=== PATIENT | male | born 1945 | race Caucasian/White ===

== ENCOUNTER → 2017-11-05 | Outpatient (CLI) | payer MEDICARE, OTHER ==
[~2017-11-05] MED LIST: ALBU2.5V4 IH; ASCO100083 PO; AZEL205. NS; CATHETER FLUSH 10 ML SYR IV PRN; DILT120C85 PO; FEXO180T84 PO; FISH1CAP15 PO; GABA300C PO; GARL200T PO; GLUC-113 PO; LEVO125T6 PO; MMT17NA NS; MULT-890 PO; OMEP20TA2 PO; REGADENOSON 0.4 MG/5 ML SYR (LEXISCAN) IV ONE; ROSU5TAB PO; TIOT18CA IH; UBID100C17 PO
[2017-11-05 13:02] VITALS: BP 140/84
== END ==
LOC: CARD 09:08
PROVIDERS: ATTEND Nurse Practitioner Family
DX: I25.10 Atherosclerotic heart disease of native coronary artery without angina pectoris (principal); E78.5 Hyperlipidemia, unspecified; R06.09 Other forms of dyspnea; I10 Essential (primary) hypertension; J44.9 Chronic obstructive pulmonary disease, unspecified
CPT/HCPCS: 93306

== ENCOUNTER → 2020-01-26 | Outpatient (CLI) | payer MEDICARE, OTHER ==
[~2020-01-26] VITALS: Ht 180 cm; Wt 108.0 kg
[2020-01-26 08:44] VITALS: BP 128/89
[2020-01-26 08:46] VITALS: BP 150/90
--- NOTE | 2020-01-26 14:16 | STRESS TEST ---
DATE OF SERVICE: 01/26/2020 RESTING AND POST REGADENOSON TECHNETIUM-99M TETROFOSMIN SPECT CT IMAGING ORDERING PHYSICIAN: Delaney Perera APRN PRIMARY PHYSICIAN: Selvin Parker MD CLINICAL DIAGNOSES: Shortness of breath, coronary artery disease. Baseline images were carried out after injection of 10.65 mCi of technetium-99m Tetrofosmin. This was followed by 0.4 mg regadenoson and 32.5 mCi of technetium-99m Tetrofosmin for stress imaging. The electrocardiogram showed sinus rhythm at baseline. It did not change significantly with the regadenoson infusion. The patient tolerated the procedure well. Review of images at rest and following stress indicates a small basal inferior perfusion defect that appears transient. Gated images show normal global left ventricular systolic function with normal regional wall motion. Left ventricular ejection fraction is calculated to be 66%. TID is absent (0.99). CONCLUSIONS: 1. The study is suggestive of a small amount of basal inferior ischemia. 2. Normal regional wall motion. 3. Normal global left ventricular systolic function with a calculated ejection fraction of 66%. Job ID: [id number] DocumentID: [id number] Dictated Date: 01/26/2020 11:43:41 Office Machinery Or Equipment Installer Date: 01/26/2020 14:15:13 Dictated By: CAROL ERVIN MD, MA, FACP, FACC, MTDD
== END ==
LOC: CARD 07:33
PROVIDERS: ATTEND Nurse Practitioner Family
DX: I25.10 Atherosclerotic heart disease of native coronary artery without angina pectoris (principal); I10 Essential (primary) hypertension; E78.5 Hyperlipidemia, unspecified; I65.23 Occlusion and stenosis of bilateral carotid arteries
CPT/HCPCS: 78452; 93017

== ENCOUNTER → 2020-01-29 | Outpatient (CLI) | payer MEDICARE, OTHER ==
[~2020-01-29] MED LIST changes: -CATHETER FLUSH 10 ML SYR IV PRN; -REGADENOSON 0.4 MG/5 ML SYR (LEXISCAN) IV ONE
== END ==
LOC: CARD 09:28
PROVIDERS: ATTEND Nurse Practitioner Family
DX: I25.10 Atherosclerotic heart disease of native coronary artery without angina pectoris (principal); I77.89 Other specified disorders of arteries and arterioles; I10 Essential (primary) hypertension; E78.5 Hyperlipidemia, unspecified; I35.8 Other nonrheumatic aortic valve disorders
CPT/HCPCS: 93306

== ENCOUNTER 2020-03-08 06:39 | Day surgery (SDC) | payer MEDICARE, OTHER ==
[2020-03-08] VITALS (16 sets, daily range): BP systolic 89–159; BP diastolic 53–108
[2020-03-08] MEDS ORDERED: HEParin (CATH LAB) 2,000 ML IV ONE (06:53)
[2020-03-08] MEDS ORDERED: LIDOCAINE 1% INJ 20 ML 20 ML VIAL ONE (06:53)
[2020-03-08] MEDS ORDERED: NS IV 1000 ML 1,000 ML ONE (06:53)
[2020-03-08 07:14] LABS: HEMOGLOBIN 14.8 G/DL (13.3-17.7); MEAN PLATELET VOLUME 9.2 FL (7.4-10.4); RED CELL DISTRIBUTION WIDTH 14.2 % (10.0-14.5); WHITE BLOOD COUNT 9.6 10^3/uL (4.3-11.0)
[2020-03-08] MEDS: NS IV 1000 ML 1,000 ML IV SCH ×4 (07:18→19:59)
[2020-03-08 07:27] LABS: INR 0.9 (0.8-1.4); PROTHROMBIN TIME PATIENT 12.7 SEC (12.2-14.7)
[2020-03-08 07:35] LABS: ALBUMIN 4.2 GM/DL (3.2-4.5); BILIRUBIN,TOTAL 0.4 MG/DL (0.1-1.0); CREATININE SERUM 1.19 MG/DL (0.60-1.30); TOTAL PROTEIN 7.3 GM/DL (6.4-8.2)
[2020-03-08] MEDS ORDERED: SIMV10TA26 PO (07:47)
[2020-03-08] MEDS ORDERED: SAW/1TAB2 PO (07:47)
[2020-03-08] MEDS ORDERED: BUDE0.253 IH (07:47)
[2020-03-08] MEDS ORDERED: METF-399 PO (07:47)
[2020-03-08] MEDS ORDERED: FLUT9.9S16 NS (07:47)
[2020-03-08] MEDS ORDERED: DILT120C53 PO (07:47)
[2020-03-08] MEDS ORDERED: ASPI-586 PO (07:47)
[2020-03-08] MEDS ORDERED: SAW450CA7 PO (07:47)
[2020-03-08] MEDS ORDERED: fentaNYL INJECTION 100 MCG/2 ML AMP ONE ×2 (08:24→13:04)
[2020-03-08] MEDS ORDERED: MIDAZOLAM 5 MG/5 ML (VERSED) VIAL ONE (08:24)
[2020-03-08] MEDS ORDERED: HEParin 1000 UNIT/ML (10ML VIAL) FOR BOLUS ONE (08:59)
[2020-03-08] MEDS ORDERED: NITRO DRIP 25000 MCG/D5W 250 ML IV ONE (09:01)
[2020-03-08] MEDS ORDERED: EPTIFIBATIDE BOLUS 20 ML IV ONE (09:04)
[2020-03-08] MEDS ORDERED: CLOPIDOGREL 300 MG (PLAVIX) TABLET PO ONE (09:20)
[2020-03-08] MEDS ORDERED: ASPIRIN 81 MG CHEW (CHILDREN'S ASA) ONE ×2 (09:20→09:26)
--- NOTE | 2020-03-08 09:32 | Cardiac Procedure Note-CS/ASA ---
Pre-Procedure Note Pre-Op Procedure Note H&P Reviewed The H&P was reviewed, patient examined and no changes noted. Date H&P Reviewed: Mar 08, 2020 Time H&P Reviewed: 08:45 Conscious Sedation Pre-Proced Time 08:45 ASA Score 3 For ASA 3 and 4: Consider anesthesia and medical clearance. Also, for patients with a history of failed moderate sedation consider anesthesia. Airway Lungs Heart ASA score ASA 1: a normal healthy patient ASA 2: a patient with a mild systemic disease (mid diabetes, controlled hypertension, obesity ASA 3: a patient with a severe systemic disease that limits activity (angina, COPD, prior Myocardial infarction) ASA 4: a patient with an incapacitating disease that is a constant threat to life (CHF, renal failure) ASA 5: a moribund patient not expected to survive 24 hrs. (ruptured aneurysm) ASA 6: a declared brain- patient whose organs are being harvested. For emergent operations, add the letter E after the classification Mallampati Classification Grade 2 Sedation Plan Analgesia, Amnesia, Plan communicated to team members, Discussed options with patient/fam, Discussed risks with patient/fam The patient is an appropriate candidate to undergo the planned procedure, sedation, and anesthesia. The patient immediately re-assessed prior to indication. CAROL ERVIN MD FACP FAC CCDS Mar 08, 2020 09:32
[2020-03-08] MEDS ORDERED: PATIENT MAY USE OWN MEDS, ALL PO SCH (09:45)
[2020-03-08] MEDS ORDERED: ACETAMINOPHEN 325 MG TABLET PO PRN (10:00)
--- NOTE | 2020-03-08 10:14 | CARDIAC CATHETERIZATION ---
DATE OF SERVICE: 03/08/2020 CARDIAC CATHETERIZATION and CORONARY INTERVENTION REPORT INDICATION FOR PROCEDURE: The patient is a 74-year-old man with multiple coronary artery disease risk factors and symptoms of shortness of breath and chest discomfort, who had a myocardial perfusion imaging study done that indicated inferior ischemia. Cardiac catheterization was carried out after having obtained an informed consent. An informed consent was obtained for cardiac catheterization and possible ad hoc coronary intervention. DESCRIPTION OF PROCEDURE: He was brought to the cardiac catheterization laboratory in a fasting state. Right groin was prepared and draped in the usual sterile fashion. Lidocaine 1% was used for local anesthesia. Modified Seldinger technique was used to advance a 5-Chilean sheath in the right femoral artery. A 5-Chilean JL4 catheter was used for left coronary angiography, 5-Chilean JR4 catheter for right coronary angiography, 5-Chilean pigtail catheter was used for left heart catheterization and left ventricular angiography. PERCUTANEOUS INTERVENTION TO THE RIGHT CORONARY ARTERY: Following completion of the diagnostic procedure, we carried out percutaneous intervention to the right coronary, which was exhibiting 90% mid vessel stenosis. We exchanged the sheath over a wire for a 6-Chilean sheath. We gave 6000 units of intravenous heparin. A double bolus of Integrilin was also given during the procedure. We used a 6-Chilean JR4 guide catheter, but this was resulting in a coronary spasm. We exchanged this guide catheter over a 6-Chilean JR4 with side holes and also gave intracoronary nitroglycerin. We advanced a ChoICE floppy wire across the lesion and the tip was placed in the distal vessel. We carried out balloon angioplasty with Emerge 2.0 x 20 mm balloon. This was removed and we then stented the lesion with Alpine Xience 2.75 x 23 mm stent, which was deployed at 16 atmospheres. Subsequent angiography revealed 0% residual stenosis at the previous site of 90% stenosis and flow throughout the vessel is normal. He tolerated the procedure well. Angioplasty equipment was removed and the sheath was sutured in place and the patient was transferred to the floor for manual sheath removal. HEMODYNAMICS: Left ventricular end-diastolic pressure following coronary angiography was 11 mmHg. There was no significant pressure gradient on pullback across the aortic valve. Ascending aortic pressure was 92/62 with mean of 81 mmHg. CORONARY ANGIOGRAPHY: Left main coronary artery did not exhibit significant disease. Left anterior descending artery has 60% to 70% mid vessel stenosis. The left anterior descending artery is generally of a very small caliber. Left circumflex artery has mild plaques. The right coronary artery has diffuse mild plaques and also had a 90% mid vessel stenosis, which was successfully stented with Alpine Xience 2.75 x 23 mm stent. LEFT VENTRICULAR ANGIOGRAPHY: Left ventricular angiography was carried out in the right anterior oblique projection. Global left ventricular systolic function appeared normal. No regional wall motion abnormalities were seen. Left ventricular ejection fraction was approximately 60%. CONCLUSIONS: 1. A 90% mid vessel right coronary artery stenosis was successfully stented with Alpine Xience 2.75 x 23 mm stent. The left anterior descending artery is of a small caliber and has relatively long 60% to 70% mid vessel stenosis. Left circumflex artery has mild plaques. 2. Normal left ventricular end-diastolic pressure. 3. Normal global left ventricular systolic function with ejection fraction approximately 60%. DISCUSSION AND RECOMMENDATIONS: Dual antiplatelet therapy has been added to the regimen. Risk factor modification was reviewed. He remains hospitalized for an overnight observation. Job ID: [id number] DocumentID: [id number] Dictated Date: 03/08/2020 09:55:04 Rivet Hole Puncher Date: 03/08/2020 10:13:57 Dictated By: CAROL ERVIN MD, MA, FACP, FACC,
[2020-03-08] MEDS: inSUlin ASPART (NovoLOG) 1 UNIT/0.01 ML (CHARGE PER UNIT) SC SCH ×3 (11:25→20:12)
[2020-03-08] MEDS ORDERED: RT-ALBUTEROL SULF 2.5 MG/3 ML PRE-MIX VIAL IH SCH (13:00)
[2020-03-08] MEDS ORDERED: ATROPINE INJECTION 1 MG/10 ML SYR (ABBOTT) ONE (13:04)
[2020-03-08] MEDS ORDERED: ONDANSETRON 4 MG/2 ML (SDV) Z0FRAN ONE (13:04)
[2020-03-08] MEDS: RT-BUDESONIDE NEBS 0.5 MG/2ML (PULMICORT) AMP INH SCH (18:41)
[2020-03-08] MEDS: RT-ALBUTEROL SULF 2.5 MG/3 ML PRE-MIX VIAL IH SCH (18:41)
[2020-03-08] MEDS ORDERED: BUDESONIDE 0.25 MG IH SCH (21:00)
[2020-03-08] MEDS ORDERED: SIMvastatin 10 MG (ZOCOR) TAB PO SCH (21:00)
[2020-03-09] VITALS: BP 119/63
[2020-03-09] MEDS: NS IV 1000 ML 1,000 ML IV SCH (03:42)
[2020-03-09 03:45] LABS: HEMOGLOBIN 13.9 G/DL (13.3-17.7); MEAN PLATELET VOLUME 9.8 FL (7.4-10.4); WHITE BLOOD COUNT 7.6 10^3/uL (4.3-11.0)
[2020-03-09 03:50] VITALS: BP 120/77
[2020-03-09 03:53] LABS: CHLORIDE 107 MMOL/L (98-107); POTASSIUM 4.1 MMOL/L (3.6-5.0); SODIUM 139 MMOL/L (135-145)
[2020-03-09 03:54] LABS: CALCIUM 8.8 MG/DL (8.5-10.1)
[2020-03-09 03:55] LABS: GLUCOSE 105 MG/DL (70-105)
[2020-03-09 03:56] LABS: CARBON DIOXIDE 21 MMOL/L (21-32)
[2020-03-09 03:59] LABS: CREATININE SERUM 1.04 MG/DL (0.60-1.30); GFR ESTIMATED > 60
[2020-03-09 04:00] LABS: BUN/CREATININE RATIO 11
[2020-03-09] MEDS: inSUlin ASPART (NovoLOG) 1 UNIT/0.01 ML (CHARGE PER UNIT) SC SCH ×2 (04:15→10:02)
[2020-03-09] MEDS: RT-BUDESONIDE NEBS 0.5 MG/2ML (PULMICORT) AMP INH SCH (07:19)
[2020-03-09] MEDS: RT-ALBUTEROL SULF 2.5 MG/3 ML PRE-MIX VIAL IH SCH (07:20)
[2020-03-09 07:30] VITALS: BP 139/82
[2020-03-09] MEDS ORDERED: ULTRA COQ10 100 MG PO SCH (08:00)
[2020-03-09] MEDS ORDERED: VITAMIN C PO SCH (08:00)
[2020-03-09] MEDS ORDERED: ROSE HIPS PO SCH (08:00)
[2020-03-09] MEDS ORDERED: ASPIRIN 81 MG CHEW (CHILDREN'S ASA) PO SCH (09:00)
[2020-03-09] MEDS ORDERED: dilTIAZem120 MG (CARDIZEM CD) CAP PO SCH (09:00)
[2020-03-09] MEDS ORDERED: FLUTICASONE FUROATE NS SCH (09:00)
[2020-03-09] MEDS ORDERED: LEVOTHYROXINE 125 MCG (LEVOTHROID) TABLET PO SCH (09:00)
[2020-03-09] MEDS ORDERED: [UNRECOGNIZED DRUG - OTHER] PO SCH (09:00)
[2020-03-09] MEDS ORDERED: FLUTICASONE NASAL SPRAY (FLONASE) 16 GM BTL NS SCH (09:00)
[2020-03-09] MEDS ORDERED: SAW PALMETTO 450 MG PO SCH (09:00)
[2020-03-09] MEDS ORDERED: SAW PALMETTO FRUIT 450 MG PO SCH (09:00)
[2020-03-09] MEDS ORDERED: CLOPIDOGREL 75 MG (PLAVIX) TABLET PO SCH (09:00)
--- NOTE | 2020-03-09 09:39 | Progress Note - Cardiology ---
Cardiology SOAP Progress Note Subjective: No cp or palp or syncope or shortness of breath No groin discomfort or leg discomfort or discoloration No n/v/d No focal weakness Feels well and wishes to go home Objective: I&O/Vital Signs 03/09/20 03/09/20 03/09/20 03/09/20 00:00 01:00 03:50 06:44 Temp 36.8 36.9 Pulse 61 60 62 59 Resp 16 17 B/P (MAP) 119/63 (81) 120/77 (91) Pulse Ox 95 94 O2 Delivery NIV CPAP NIV CPAP 03/09/20 03/09/20 03/09/20 07:21 07:30 08:00 Temp 36.7 Pulse 71 Resp 16 B/P (MAP) 139/82 (101) Pulse Ox 92 93 O2 Delivery Room Air Room Air Room Air 03/09/20 00:00 Intake Total 200 ml Output Total 500 ml Balance -300 ml Weight (Pounds): 255 Weight (Calculated Kilograms): 115.567484 Groin site without hematoma: Yes Condition: DP/PT pulses palpable Bruising: mild bruising Constitutional: AAO x 3, well-developed, well-nourished Respiratory: No accessory muscle use; other (good bilat air entry) Cardiovascular: regular rate-rhythm, S1 and S2, systolic murmur (faint SILVIO at card base) Gastrointestional: No tender; soft; No guarding, No rebound; audible bowel sounds Extremities: No clubbing, No cyanosis, No significant edema Neurologic/Psychiatric: oriented x 3, other (moves all limbs equally, able to walk w/o difficulty) Skin: No rash on exposed areas, No ulcerations on exposed areas Results/Procedures: Labs Laboratory Tests 03/08/20 11:05: Activated Partial Thromboplast Time 92H, Glucometer 103 03/08/20 12:15: Activated Partial Thromboplast Time 46H 03/08/20 15:40: Glucometer 99 03/08/20 20:04: Glucometer 108 03/09/20 03:23: White Blood Count 7.6, Red Blood Count 4.59, Hemoglobin 13.9, Hematocrit 41, Mean Corpuscular Volume 90, Mean Corpuscular Hemoglobin 30, Mean Corpuscular Hemoglobin Concent 34, Red Cell Distribution Width 14.0, Platelet Count 231, Mean Platelet Volume 9.8, Sodium Level 139, Potassium Level 4.1, Chloride Level 107, Carbon Dioxide Level 21, Anion Gap 11, Blood Urea Nitrogen 11, Creatinine 1.04, Estimat Glomerular Filtration Rate > 60, BUN/Creatinine Ratio 11, Glucose Level 105, Calcium Level 8.8 Microbiology 03/08/20 MRSA Screen - Final, Complete MRSA not isolated Laboratory Tests 03/08/20 07:09 03/09/20 03:23 A/P: Assessment: CAD. Card cath of : 90% mid vessel right coronary artery stenosis was successfully stented with Alpine Xience 2.75 x 23 mm stent. The left anterior descending artery is of a small caliber and has relatively long 60% to 70% mid vessel stenosis. Left circumflex artery has mild plaques. Normal left ventricular end-diastolic pressure. Normal global left ventricular systolic function with ejection fraction approximately 60%. MPI of January 26, 2020 was suggestive of a small amt of basal inferior ischemia. Normal regional wall motion. LVEF 66%. Subsequent card cath summarized above Echocardiogram of January 29, 2020 showed LVEF 60-65%. Aortic valve thickening consistent with sclerosis. RVSP approx 24 mmHg. H/o mod COPD per pulm function test of Sep 2013 at [facility] in [place], [place]. He follow with Dr. Escalante, relocation commissioner, in [place], [place]. H/o COPD Sleep apnea syndrome treated with CPAP Cervical spinal disc disease Carotid u/s January 20, 2020: mild carotid arterial disease w/o evidence of hemodynamic signficance Hypertension Hyperlipidemia, statin therapy, followed by his PCP Quit tobacco use in 1998 Hypothyroidism treated with thyroid replacement therapy Plan: * I discussed the findings of card cath, interventions undertaken, medication changes, rationale for current regimen, potential side effect of his CV regim en with him in detail and advised compliance and to let us know if he has any difficulty with his cardiac regimen (especially DAPT) before deciding to make any changes * I discussed his cath findings and intervention with his on the phone yesterday * Outpatient f/u advised * Questions answered CAROL ERVIN MD FACP FAC CCDS Mar 09, 2020 09:39
[2020-03-09] MEDS ORDERED: CLOP75TA28 PO (09:44)
[2020-03-09] MEDS ORDERED: ASPI-999 PO (09:44)
--- NOTE | 2020-03-09 09:45 | Discharge Inst-Cardiology ---
Discharge Inst-Cardiac Discharge Medications New Medications: Aspirin (Aspirin) 81 Mg Tab.chew 0 MG PO DAILY for 90 Days, #90 TAB 3 Refills Clopidogrel Bisulfate (Clopidogrel) 75 Mg Tablet 75 MG PO DAILY for 90 Days, #90 TAB 3 Refills Continued Medications: Albuterol Sulfate (Proventil) 0.83 Mg/Ml Solution 0.83 MG IH, EA Ascorbic Acid (Vitamin C) 1,000 Mg Tab.chew 1000 MG PO BID, TAB.CHEW Budesonide (Pulmicort) 0.25 Mg/2 Ml Ampul.neb 0.25 MG IH BID, INHALER Diltiazem HCl (Cartia Xt) 120 Mg Cap.er.24h 120 MG PO DAILY, CAP Fexofenadine Hcl (Concetta Allergy) 180 Mg Tablet 180 MG PO, TAB Fish Oil/Dha/Epa (Fish Oil 1,200 Mg Fish Oil) 1 Each Capsule 1 EACH PO, CAP Fluticasone Furoate (Flonase Sensimist) 5.9 Ml [place].susp 5.9 ML NS DAILY, SPRAY Garlic (Garlic) 200 Mg Tablet 200 MG PO, TAB Gluc 2KCL/Chondr/Keanu Hy/Hy Ac (Glucosamine & Chondroitin Cap) 1 Each Capsule 1 EACH PO, CAP Levothyroxine Sodium (Levothyroxine 125 Mcg Tab) 125 Mcg Tablet 1 EACH PO DAILY, TAB Multivitamin/Iron/Folic Acid (Daily Multiple Tablet) 1 Each Tablet 1 EACH PO, TAB Saw Andover Fruit (Saw [place]over) 450 Mg Capsule 450 MG PO DAILY, CAP Saw/Vit E/Sod Marcia/Lyc/Beta/Pyg (Prostate Health Caplet) 1 Each Tablet 1 EACH PO DAILY, TAB Simvastatin (Simvastatin) 10 Mg Tablet 10 MG PO HS, TAB Ubidecarenone (Coq-10) 100 Mg Capsule 100 MG PO PER PACKAGE INSTR, CAP Discontinued Medications: Aspirin (Aspir 81) 81 Mg Tablet.dr 81 MG PO DAILY, TAB Metformin HCl (Metformin HCl) 1,000 Mg Tablet 1000 MG PO BID, TAB Patient Instructions Patient Instructions: Hold METFORMIN until the evening of 03/10/20, then resume previous home doseCAROL Han MD FACP [facility] CCDS Mar 09, 2020 09:45
--- NOTE | 2020-03-09 09:46 | Discharge Inst-Post CATH ---
Discharge Inst-CATH/EP Post Cardiac Cath/EP D/C Inst Follow Up/Plan F/u with Dr Ham in one week ACTIVITY * Go Home directly and rest. * Limit activity of the leg (or wrist if it was used) for 7 days including aerobics, swimming, jogging, bicycling, etc. * Restrict stair-climbing for 7 days if possible, if not, climb up with your n on-cath leg, then bring together on the same step. * Avoid lifting, pushing, pulling or excessive movement of the affected ex tremity for 7 days. * Customary sexual activity may be resumed after 2 days-use caution not to use a position that strains or causes pain to the affected extremity. * No driving for 24 hours. * NO SMOKING. * Avoid straining for bowel movements for 7 days. * Gentle walking on level ground is allowed. * Returning to work will depend on the type of procedure and the results. Your doctor will discuss this with you. CALL YOUR DOCTOR FOR ANY OF THE FOLLOWING: *If bleeding from the puncture site occurs- Apply gentle pressure to site with clean cloth and call your doctor or EMS. * If a knot or lump forms under the skin, increases in size, or causes pain. * If bruising appears to be worsening or moving further down your leg instead of disappearing. * Temperature above 101 F. CARE OF YOUR GROIN INCISION; * Bruising or purple discoloration of the skin near the puncture site is common. * You may shower only, no bathtub bathing for 5 days. Be careful to avoid slipping as your leg may feel stiff. * If a closure device was used on your femoral artery, please see the attached guide regarding care of the device and your leg. * Leave dressing on FOR 24 hours. CARE OF YOUR WRIST INCISION; * Bruising or purple discoloration of the skin near the puncture site is common. * You may shower. * DO NOT submerge wrist. * Leave dressing on FOR 24 hours. CAROL HAM MD [facility] CCDS Mar 09, 2020 09:46
== END 2020-03-09 10:10 | disposition home or self-care (01) ==
LOC: CATH 06:39 → ICU 09:45 → CSD 19:52 → CATH 03-09 10:10
PROVIDERS: ATTEND Internal Medicine Cardiovascular Disease
DX: I25.10 Atherosclerotic heart disease of native coronary artery without angina pectoris (principal); J44.9 Chronic obstructive pulmonary disease, unspecified; I65.29 Occlusion and stenosis of unspecified carotid artery; E03.9 Hypothyroidism, unspecified; E78.5 Hyperlipidemia, unspecified; I10 Essential (primary) hypertension; G47.30 Sleep apnea, unspecified; M50.90 Cervical disc disorder, unspecified, unspecified cervical region; E66.9 Obesity, unspecified; Z68.32 Body mass index [BMI] 32.0-32.9, adult; Z79.82 Long term (current) use of aspirin; Z79.84 Long term (current) use of oral hypoglycemic drugs; Z79.51 Long term (current) use of inhaled steroids; Z79.899 Other long term (current) drug therapy; Z88.0 Allergy status to penicillin; Z88.2 Allergy status to sulfonamides; Z88.8 Allergy status to other drugs, medicaments and biological substances; Z87.891 Personal history of nicotine dependence; Z11.2 Encounter for screening for other bacterial diseases
CPT/HCPCS: 80048; 80053; 80061; 82962 ×2; 85027 ×2; 85610; 85730; 87081; 93005; 93458; 94640 ×2; 94760 ×2; C1725; C1769; C1874; C1887 ×3; C1894 ×2; C9600; 36415

== ENCOUNTER → 2020-06-29 | Outpatient (CLI) | payer MEDICARE ==
[~2020-06-29] MED LIST changes: +ASPI-586 PO; +ASPI-999 PO; +BUDE0.253 IH; +CLOP75TA28 PO; +DILT120C53 PO; +FLUT9.9S16 NS; +METF-399 PO; +SAW/1TAB2 PO; +SAW450CA7 PO; +SIMV10TA26 PO
--- NOTE | 2020-06-29 12:18 | Diagnostic Imaging Report ---
PROCEDURE: MR imaging cervical spine without contrast. TECHNIQUE: Multiplanar, multisequence MR imaging of the cervical spine was performed without contrast. INDICATION: Increasing back pain. History of cervical spine surgery. COMPARISON: none. FINDINGS: No acute fracture or dislocation is seen in the cervical spine. ACDF changes are seen from C5 to C7. There is straightening of the cervical spine. The vertebral body heights and disc spaces are well maintained. The bone marrow signal is unremarkable. No focal osseous lesions. The craniocervical junction is maintained. The cervical spinal cord demonstrates normal intrinsic signal. No epidural collections are seen. The included brainstem and posterior fossa have normal appearance. Multilevel degenerative changes are seen in the cervical spine with posterior disc bulges and uncovertebral arthropathy. C2-C3: Uncovertebral arthropathy results in no significant spinal canal narrowing and mild bilateral foraminal narrowing. C3-C4: Posterior disc bulge and uncovertebral arthropathy results in moderate spinal canal stenosis and [id number] bilateral foraminal stenosis. C4-C5: Posterior disc bulge and uncovertebral arthropathy results in severe spinal canal stenosis and severe bilateral foraminal stenosis. C5-C6: Uncovertebral arthropathy results in no significant spinal canal narrowing and mild bilateral foraminal narrowing. C6-C7: Uncovertebral arthropathy results in no significant spinal canal narrowing and [id number] left and no right foraminal narrowing. C7-T1: No significant spinal canal or foraminal stenosis. The soft tissues of neck are unremarkable. IMPRESSION: 1. No acute fracture or dislocation of the cervical spine. 2. Multilevel degenerative changes in the cervical spine, greatest at C3-C4 and C4-C5. 3. ACDF changes from C5 to C7. Dictated by: Dictated on workstation # [id number]
== END ==
LOC: RAD 09:40
PROVIDERS: ATTEND Physician Assistant
DX: M47.812 Spondylosis without myelopathy or radiculopathy, cervical region (principal); M43.22 Fusion of spine, cervical region
CPT/HCPCS: 72141

== ENCOUNTER → 2020-07-11 | Outpatient (CLI) | payer MEDICARE, OTHER ==
--- NOTE | 2020-07-11 08:33 | Diagnostic Imaging Report ---
PROCEDURE: CT cervical spine without contrast. TECHNIQUE: Multiple contiguous axial images were obtained through the cervical spine without the use of intravenous contrast. Sagittal and coronal reformations were then performed. Auto Exposure Controls were utilized during the CT exam to meet ALARA standards for radiation dose reduction. DATE: July 11, 2020. INDICATION: 75-year-old male, right neck and arm pain with numbness. COMPARISON: MRI cervical spine June 29, 2020. FINDINGS: There is no identified facet joint subluxation or dislocation. There are no prominent facet degenerative changes. There is no asymmetric widening of the cervical disc spaces. There is no prominent prevertebral soft tissue swelling. There is anterior cervical spinal fusion hardware spanning C5-C7. The sideplate and fixation screws appear intact without abnormal surrounding lucency. There is also disc space or material at C5-C6 and C6-C7. There is mild disc height loss at C3-C4 and mild to moderate disc height loss at C4-C5. There are posterior disc osteophyte complexes at both levels. CT is limited for assessment of disc pathology as well as additional nonbony causes of pathology in the spinal canal. There are bilateral uncovertebral degenerative changes at C3-C4 and C4-C5. There does appear to be moderate to severe bilateral bony foraminal narrowing at C4-C5. There appears to be moderate left and mild right bony foraminal narrowing at C3-C4. There is no identified acute fracture of the cervical spine. There is no aggressive bone lesion. The visualized portions of the lung apices are clear. There are bilateral carotid vascular calcifications. There is retropharyngeal course of the carotid arteries bilaterally. IMPRESSION: 1. Anterior cervical spinal fusion hardware spanning C5-C7 without complication. 2. Disc and uncovertebral degenerative changes at C3-C4 and C4-C5 with bony foraminal narrowing at both levels as detailed above. CT is limited for assessment of disc pathology as well as additional nonbony causes of pathology in the spinal canal. The degree of foraminal narrowing and spinal stenosis at C3-C4 and C4-C5 is more prominent accounting for nonbony pathology present on prior MRI, better demonstrated on recent MRI cervical spine on June 29, 2020. Dictated by: Dictated on workstation # [id number]
== END ==
LOC: RAD 08:07
PROVIDERS: ATTEND Physician Assistant
DX: M50.320 Other cervical disc degeneration, mid-cervical region, unspecified level (principal); M50.321 Other cervical disc degeneration at C4-C5 level; M48.02 Spinal stenosis, cervical region; Z98.1 Arthrodesis status
CPT/HCPCS: 72125

== ENCOUNTER → 2022-05-22 | Outpatient (CLI) | payer MEDICARE, OTHER ==
[~2022-05-22] MED LIST changes: +CATHETER FLUSH 10 ML SYR IVP PRN; +REGADENOSON 0.4 MG/5 ML SYR (LEXISCAN) IV ONE
[2022-05-22 11:55] VITALS: BP 153/97
--- NOTE | 2022-05-23 14:53 | STRESS TEST ---
DATE OF SERVICE: RESTING AND POST REGADENOSON TECHNETIUM-99M TETROFOSMIN SPECT CT IMAGING ORDERING PHYSICIAN: Delaney Perera APRN PRIMARY PHYSICIAN: Dr. Parker. CLINICAL DIAGNOSIS: Coronary artery disease. Baseline images were carried out after injection of 11 mCi of technetium-99m Tetrofosmin. This was followed by 0.4 mg regadenoson and 32.9 mCi of technetium-99m Tetrofosmin for stress imaging. The electrocardiogram showed sinus rhythm with borderline first-degree AV block at baseline. This did not change significantly with regadenoson infusion. The patient noted mild shortness of breath following regadenoson infusion, which resolved in a few minutes. Review of images at rest and following stress indicates diminished count uptake in the inferior wall at rest and following regadenoson infusion. This appears to be due to diaphragmatic attenuation. Gated images show normal global left ventricular systolic function with normal regional wall motion, including the inferior wall of the left ventricle. Left ventricular ejection fraction is calculated to be 69%. CONCLUSIONS: 1. No evidence of significant myocardial ischemia or infarction on this study. 2. Normal regional wall motion. 3. Normal global left ventricular systolic function with a calculated ejection fraction of 69%. Job ID: [id number] DocumentID: [id number] Dictated Date: 05/23/2022 12:32:25 Sales And Marketing Director Date: 05/23/2022 14:52:45 Dictated By: CAROL ERVIN MD, MA, FACP, FACC,
== END ==
LOC: CARD 10:24
PROVIDERS: ATTEND Nurse Practitioner Family
DX: I35.8 Other nonrheumatic aortic valve disorders (principal); I25.10 Atherosclerotic heart disease of native coronary artery without angina pectoris
CPT/HCPCS: 78452; 93017; 93306; A9502